=== PATIENT | male | born 1980 | race Two or more races ===

== ENCOUNTER → 2018-01-28 | Outpatient (CLI) | payer OTHER ==
--- NOTE | 2018-01-28 14:37 | RADIOLOGY REPORT (SQ) ---
EXAM DESCRIPTION: CT SOFT TISSUE NECK WITH COMPLETED DATE/TIME: 01/28/2018 1:51 pm REASON FOR STUDY: PAIN COMPARISON: None. TECHNIQUE: Post IV contrasted scanning from skull base through lung apices with review of bone, soft tissue and lung windows. Reconstructed coronal and sagittal MPR images reviewed. All images stored on PACS. All CT scanners at this facility use dose modulation, iterative reconstruction, and/or weight based d osing when appropriate to reduce radiation dose to as low as reasonably achievable (ALARA). [facility]: Dose Right [facility]: CareDose [facility]: Dose Right [facility]: Teradose 4D [facility]: [employer] CONTRAST TYPE AND DOSE: contrast/concentration: Isovue 370.00 mg/ml; Total Contrast Delivered: 75.0 ml; Total Saline Delivered: 55.0 ml RENAL FUNCTION: None required. The patient is less than 50 years old. RADIATION DOSE: 20 . LIMITATIONS: None. FINDINGS: Patient indicates a palpable abnormality along the right lower posterolateral neck soft ti ssues. In the area of palpable abnormality, a well-circumscribed fat density nodule is present measu ring 2.5 cm AP x 1.8 cm transverse x 4.6 cm craniocaudad. This likely represents a benign lipoma. T his is along the posterior aspect of the sternocleidomastoid muscle. Patient indicates a 2nd palpable abnormality midline posterior neck soft tissues. This area was jerry ed with a BB. Deep to the marker in the skin, an ill-defined area of soft tissue stranding in the [place] bcutaneous fat with adjacent skin thickening is present. A 2 mm cyst in the skin is identified. Thi s could represent a ruptured or infected sebaceous cyst. Soft tissue stranding measures 1.3 cm AP x 2 cm transverse x 2 cm craniocaudad. SKULL BASE: Intact. MAJOR SALIVARY GLANDS: No solid or cystic masses. No inflammatory changes. LYMPHADENOPATHY: No adenopathy. MUCOSAL MASSES OR ASYMMETRY: No mucosal masses or asymmetry. LARYNX/CORDS: No abnormal findings. VASCULAR STRUCTURES: The major vessels are patent. LUNG APICES: Clear. BONES: Intact. THYROID: Normal size. No masses. PARANASAL SINUSES: Clear. OTHER: No other significant finding. IMPRESSION: Benign lipoma right lower lateral neck, along the posterior inferior corner of the cartwright ocleidomastoid muscle Midline posterior neck skin thickening, 2 mm skin cyst with stranding in the subcutaneous fat. This could be related to an infected or inflamed or ruptured sebaceous cyst. TECHNICAL DOCUMENTATION: JOB ID: [id number] Quality ID # [id number]: Final reports with documentation of one or more dose reduction techniques (e.g., Au tomated exposure control, adjustment of the mA and/or kV according to patient size, use of iterative reconstruction technique) 2010 [employer]- All Rights Reserved Reading location - IP/workstation name: [facility] [place]
== END ==
LOC: RAD 13:00
PROVIDERS: ATTEND Family Medicine
DX: M54.2 Cervicalgia (principal)
CPT/HCPCS: 70491